=== PATIENT | male | born 1980 | race Caucasian/White ===

== ENCOUNTER 2017-01-13 12:10 | Emergency (ER) | payer OTHER | END 2017-01-13 15:50 | disposition home or self-care (01) | LOC: D.ER 12:10 | DX: S29.012A Strain of muscle and tendon of back wall of thorax, initial encounter (principal); X58.XXXA Exposure to other specified factors, initial encounter; Y93.89 Activity, other specified; Y92.89 Other specified places as the place of occurrence of the external cause ==